=== PATIENT | male | born 1955 | race Caucasian/White ===

== ENCOUNTER → 2020-06-22 12:54 | Outpatient (CLI) | payer MEDICARE, SELFPAY ==
[2020-06-22 13:06] VITALS: BP 98/57; PULSE 82; RESP 16; TEMP 35.9; O2SAT 100; BMI 28.0
[2020-06-22] MEDS: Acetaminophen 325 MG Tablet 650 MG PO (13:23)
[2020-06-22 13:52] VITALS: BP 95/53; PULSE 85; RESP 16; TEMP 36.4
[2020-06-22 14:52] VITALS: BP 99/53; PULSE 83; RESP 16; TEMP 37.1
[2020-06-22 15:44] VITALS: BP 98/56; PULSE 83; RESP 16; TEMP 37.1; O2SAT 98
== END ==
PROVIDERS: PCP Family Medicine; Referring Provider Internal Medicine Hematology & Oncology; Visit Provider Internal Medicine Hematology & Oncology
DX: D46.Z Other myelodysplastic syndromes (principal)
CPT/HCPCS: 36430; 86850; 86900; 86901; 86920; 86922; J7040; P9040; A4216